=== PATIENT | male | born 1965 | race Caucasian/White ===

== ENCOUNTER 2024-11-20 17:56 | Emergency (ER) | payer BC, MEDICAID ==
[~2024-11-20] VITALS: Ht 170.2 cm; Wt 88.3 kg
--- NOTE | 2024-11-20 18:41 | ELECTROCARDIOGRAPH REPORT ---
[facility] Test Date: 2024-11-20 Test Time: 18:38:52 Pat Name: BERNARD DXION Department: PSYCHIATRIC- Room: Gender: M [employer]: : [id number] Requested By: HERIBERTO SAENZ Order Number: [id number] Reading MD: Measurements Intervals [place] Rate: 55 P: 19 LA: 167 QRS: 45 QRSD: 74 T: 33 QT: 421 QTc: 403 Interpretive Statements Sinus bradycardia Abnormal R-wave progression, early transition Baseline wander in lead(s) V2 Please click the below link to view image of tracing.
[2024-11-20 18:42] LABS: MEAN PLATELET VOLUME 8.2 FL (7.4-10.4); RED CELL DISTRIBUTION WIDTH 13.2 % (11.5-14.5)
[2024-11-20] MEDS: normal saline 1000ml 1,000 ML IV ONE ×2 (18:52→21:08)
[2024-11-20 18:54] LABS: CREATININE 0.95 MG/DL (0.60-1.10); TOTAL CARBON DIOXIDE 24.7 MMOL/L (24-32); eCRCL 80 ML/MIN; eGFR 82 ML/MIN
[2024-11-20] MEDS: ondansetron/PF 4mg/2ml inj IV ONE (18:54)
[2024-11-20 19:01] LABS: PRO BRAIN NATRIURETIC PEPTIDE 90 PG/ML (0-125)
[2024-11-20] MEDS: morphine 4 MG/ML inj SYRINge IV ONE (19:25)
--- NOTE | 2024-11-20 19:40 | RADIOLOGY REPORT ---
EXAM: DI CHEST,SINGLE VIEW CLINICAL HISTORY: CP TECHNIQUE: Single AP view of the chest WID: COMPARISON: None FINDINGS: Lines and tubes: None Chest: The heart size and pulmonary vasculature is within normal limits. No pleural effusion, pneumothorax, or consolidation. The osseous structures are grossly intact. IMPRESSION: 1. No acute cardiopulmonary abnormality.
[2024-11-20] MEDS ORDERED: NO HOME MEDS (20:02)
[2024-11-20 22:33] LABS: LEUKOCYTE ESTERASE ,URINE NEGATIVE (Neg); NITRITES, URINE NEGATIVE (Neg); OCCULT BLOOD,URINE NEGATIVE (Neg)
[2024-11-20 22:41] LABS: UA COLLECTION TYPE NON-SPECIFIED
[2024-11-20] MEDS: metoclopramide 5 mg/ml inj IV ONE (23:11)
--- NOTE | 2024-11-21 00:52 | Physician Documentation ---
History of Present Illness ~ Chief Complaint: Abdominal Pain Stated Complaint: ABDOMINAL PAIN Time Seen by MD: 18:10 Primary Medical Doctor: None Mode of Arrival: POV HPI Epigastric abdominal pain for several days. 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 Medication Reconciliation Allergies: Coded Allergies: No Known Allergies (Unverified , 09/21/09) Miscellaneous Medications Home Med List (No Home Medications), (Reported) Past Medical History Smoking Status: Never smoker Physical Exam Vital Signs: Temperature: 99.2, Source: Oral, Heart Rate: 62, Respiratory Rate: 16, BP: 134/94, Pulse Oximetry: 95, Weight: 88.300 Oxygen Flow Rate: 0 Progress Results/Orders Results/Orders Orders - HERIBERTO SAENZ MD Chest,Single View (11/20/24 18:28) Monitor (11/20/24 18:28) Saline Lock (11/20/24 18:28) Oxygen (11/20/24 18:28) Completed Orders - HERIBERTO SAENZ MD Normal Saline 1000ml (0.9% Sodium Chlori (11/20/24 18:15) Cbc/Diff (11/20/24 18:12) CMP (11/20/24 18:12) Lipase (11/20/24 18:12) Urinalysis, Cult If Indicated (11/20/24 18:12) Ondansetron Inj. (Zofran 4mg/2ml Vial) (11/20/24 18:20) Chest,Single View (11/20/24 18:28) BMP (11/20/24 18:28) PBNP (11/20/24 18:28) Electrocardiogram (11/20/24 18:28) Hs Troponin I W Calculations (11/20/24 18:28) Hs Troponin I W Calculations (11/20/24 20:28) Hs Troponin I W Calculations (11/20/24 21:28) Morphine 4mg/Ml Inj. (Morphine Inj.) (11/20/24 19:20) Normal Saline 1000ml (0.9% Sodium Chlori (11/20/24 20:55) Metoclopramide Inj (Reglan Inj) (11/20/24 23:00) Diphenhydramine Inj (Benadryl Inj.) (11/20/24 23:00) Medications Received in ER Medications (Trade) Dose Ordered Sig/Radha Route PRN Reason Start Time Stop Time Status Last Admin Dose Admin Sodium Chloride 1,000 ml @ 1,000 mls/hr ONCE ONCE IV 11/20/24 18:15 11/20/24 19:14 DC 11/20/24 18:52 1,000 MLS/HR (Zofran 4mg/2ml vial) 8 mg ONCE ONCE IV 11/20/24 18:20 11/20/24 18:21 DC 11/20/24 18:54 8 MG (morphine inj.) 8 mg ONCE ONCE IV 11/20/24 19:20 11/20/24 19:21 DC 11/20/24 19:25 8 MG Sodium Chloride 1,000 ml @ 1,000 mls/hr ONCE ONCE IV 11/20/24 20:55 11/20/24 21:54 DC 11/20/24 21:08 1,000 MLS/HR (Reglan inj) 10 mg ONCE ONCE IV 11/20/24 23:00 11/20/24 23:01 DC 11/20/24 23:11 10 MG (Benadryl inj.) 50 mg ONCE ONCE IV 11/20/24 23:00 11/20/24 23:01 DC 11/20/24 23:11 50 MG Vital Signs 11/20/24 11/20/24 11/20/24 11/20/24 18:00 18:21 19:00 19:11 Temp 99.2 Pulse 78 76 58 Resp 18 14 18 15 B/P (MAP) 161/100 167/101 (123) 185/102 (129) Pulse Ox 100 98 100 O2 Flow Rate 0 0 11/20/24 11/20/24 11/20/24 11/20/24 19:25 20:00 21:00 21:08 Pulse 59 62 Resp 12 20 14 16 B/P (MAP) 177/106 (129) 134/94 (107) Pulse Ox 98 95 Laboratory Tests Test 11/20/24 18:29 11/20/24 20:30 11/20/24 21:38 11/20/24 22:10 White Blood Count 9.8 Red Blood Count 5.30 Hemoglobin 14.9 Hematocrit 43.8 Mean Corpuscular Volume 82.5 Mean Corpuscular Hemoglobin 28.1 Mean Corpuscular Hemoglobin Concent 34.1 Red Cell Distribution Width 13.2 Platelet Count 275 Mean Platelet Volume 8.2 Neutrophils (%) (Auto) 70.0 Lymphocytes (%) (Auto) 19.9 L Monocytes (%) (Auto) 8.3 Eosinophils (%) (Auto) 1.3 Basophils (%) (Auto) 0.5 Neutrophils # (Auto) 6.8 Lymphocytes # (Auto) 1.9 Monocytes # (Auto) 0.8 Eosinophils # (Auto) 0.1 Basophils # (Auto) 0.0 CBC Comment Sodium Level 139 Potassium Level 3.5 Chloride Level 107 Carbon Dioxide Level 24.7 Anion Gap 7 L Blood Urea Nitrogen 12 Creatinine 0.95 Estimated GFR/1.73 m2 82 BUN/Creatinine Ratio 12.6 Glucose Level 113 H Calcium Level 9.1 Total Bilirubin 0.5 Aspartate Amino Transf (AST/SGOT) 13 Alanine Aminotransferase (ALT/SGPT) 38 Alkaline Phosphatase 70 Troponin I High Sensitivity 6 7 5 Pro-B-Type Natriuretic Peptide 90 Total Protein 7.1 Albumin 4.0 Globulin 3.1 Albumin/Globulin Ratio 1.3 Lipase 33 Chemistry Comments Troponin I High Sens Percent Delta 16 28 Troponin I Hi Sens Absolute Change 1 -2 Urine Specimen Description Non-specified Urine Color Yellow Urine Clarity Clear Urine pH 6.0 Urine Specific [place] 1.020 Urine Protein Negative Urine Glucose (UA) Negative Urine Ketones Negative Urine Occult Blood Negative Urine Nitrite Negative Urine Bilirubin Negative Urine Urobilinogen 0.2 Urine Leukocyte Esterase Negative Urine Culture Indicated Not ind Volume Urine Centrifuged 10 ml Urine Comment Departure Disposition: 01 HOME / SELF CARE / HOMELESS Impression: Primary Impression: Abdominal pain Discharge Instructions: Abdominal Pain (Nonspecific) Referrals: NO PRIMARY CARE PROVIDER (PCP) Education Educated: Patient Educated regarding: diagnosis, treatment, prognosis, need for follow up Signature Scribe Signature: . Attestation: . HERIBERTO SAENZ MD Nov 21, 2024 00:52
[2024-11-21 01:10] VITALS: BP 138/90; PULSE 70; RESP 17; TEMP 98.6; O2SAT 97
== END 2024-11-21 01:14 | disposition home or self-care (01) ==
LOC: ER 17:56
DX: R10.31 Right lower quadrant pain (principal); R06.02 Shortness of breath
CPT/HCPCS: 36415; 71045; 80053; 81003; 83690; 83880; 84484; 85025; 93005; 96361; 96374; 96375; 99285; J1200; J2270; J2405; J2765; J7030